=== PATIENT | male | born 2000 | race Caucasian/White ===

== ENCOUNTER 2023-05-11 20:53 | Observation (INO) ==
[2023-05-11 21:51] LABS: Albumin Level 5.1 gm/dl (3.4-5.0); BUN Creatinine Ratio 16.1 (10-20); Bilirubin,Total 0.6 mg/dl (0.2-1.0); Creatinine Clr Calc Pharmacy 111.9 ml/min; Est GFR (Non-African American) 123.4 ml/min; Globulin 2.5 gm/dl (2.5-4.0); Potassium 3.7 mmol/L (3.5-5.1); Total Protein 7.6 gm/dl (6.0-8.3)
[2023-05-11] MEDS ORDERED: ONDANSETRON INJ 2 MG/ML 2 ML VIAL ONE (21:57)
[2023-05-11] MEDS ORDERED: diphenhydrAMINE 50 MG/ML VIAL IV STA (21:59)
[2023-05-11] MEDS ORDERED: ONDANSETRON INJ 2 MG/ML 2 ML VIAL IV STA (21:59)
--- NOTE | 2023-05-11 22:00 | Emergency Department Note ---
Impression & Plan Intractable nausea and vomiting ED Provider Note Name: BETI ANDERSON Age: 22 Sex: Male Arrives Via: Walk-In Informant: Patient, girlfriend ED Provider: Neri Sanchez MD Chief Complaint: Vomiting Impression: As per impressions above Medical Decision Makin-year-old healthy male arrives for evaluation of nausea vomiting. Rapid onset since about 7:00 this evening. Associated with abdominal cramping. On examination he is pale somewhat diaphoretic. He has no significant tenderness palpation of his abdomen. Patient continues to vomit despite multiple rounds of antiemetics. He was given 2 L normal saline followed by a 3rd L due to continued emesis and feeling lightheaded. Due to continued vomiting KUB was obtained which was unremarkable. Laboratory workup remarkable for just a mildly elevated white blood cell count and faintly elevated LFTs without bili elevation. Continued to have nausea and inability to tolerate p.o. At this point proceeded with getting a CT scan of the abdomen pelvis. Due to the intractable nature of this nausea and vomiting I do not think discharge would be reasonable at this time and thus hospitalist consulted for further management. Of note patient had an episode of severe nausea vomiting that resulted in hospital evaluation about a year ago following eating some bad food. He has had no other previous abdominal issues. Patient does admit to infrequent use of marijuana but is adamant he does not use it on a regular basis or daily. Triage/Nursing Notes reviewed by Me Differential:Gastroenteritis, food borne illness, infections, appendicitis, diverticulitis, inflammatory bowel disease, obstruction, GI bleed, biliary pathology, volvulus, as well as other pathologies. Vital Signs: reviewed and remarkable for no significant abnormalities Interventions: Normal Saline bolus 1 L IV x 3, Zofran 4 mg IV x 3, Reglan 5 mg IV, Benadryl 50 mg IV Labs:ED labs Reviewed by me and remarkable for mildly elevated white blood cell count and slightly elevated LFTs Imagin view KUB as per my interpretation nonspecific bowel gas pattern without evidence of obstruction. CT of the abdomen pelvis with IV contrast as per my informal interpretation. No evidence of obstruction, free air, free fluid or other concerning finding. Radiologist confirms Consults:Dr. Nixon of the [facility] consulted for further management. Plan: Disposition:Hospitalization. Condition: Good History of Present Illness: 22-year-old male arrives for evaluation of nausea and vomiting. Patient notes around 7 PM rapid onset of nausea vomiting. Mild associated abdominal cramping but denies any specific pain. Denies any fevers, chills, runny nose, chest pain, shortness of breath, cough, congestion, sore throat, neck pain or any other concerning signs or symptoms. He does not recall any bad food he may have eaten recently. No falls, trauma, injuries. No previous abdominal surgeries. States no sick contacts. Patient does note that this occurred about a year ago after eating some bad food. He did try some Zofran prior to arrival without improvement. Past Medical History:None Home Medications:None Allergies:NKDA Vitals:Blood Pressure: 118/86, Pulse 79, RR 16, T 36.4C, O2 94% on RA Physical Exam: GENERAL: Patient is pale appearing and in mild distress. RESPIRATORY: No dyspnea. Clear to auscultation and equal bilaterally. CARDIOVASCULAR: Regular rate and rhythm.No murmur appreciated. GASTROINTESTINAL: Abdomen soft, non-tender, no peritonitis. EXTREMITIES: Normal motion all extremities, no cyanosis, no edema. NEUROLOGIC: Alert and oriented. No focal neurologic deficits appreciated SKIN: No rash, no jaundice, no diaphoresis. PSYCH: Appropriate GCS: 15 ED Course: Times/Reassessments: Many repeat evaluations of the patient throughout his stay. Patient here for almost 5 hours and continues to have nausea and appear pale. Agreeable to hospitalization. Note I did discuss several times whether we should contact parents though he deferred given how late at night it was Neri Sanchez MD Past Med/Surg History Social History Smoking Status: Current every day smoker Tobacco Type: E-cigarettes / Vaping Second Hand Exposure: No; Do You Dip or Chew Tobacco: No; Tobacco Cessation Education Requested by Patient: No Hx Alcohol Use: No Hx Substance Use: Yes Last Used Substance: Unknown Preferred Language: Lithuanian Communication Ability: Effective Formulator Required: No Beliefs That Will Affect Care: None Current Living Situation: Family Current Living Situation Comment: apartment Other Information That Helps Us Care for You: No Feels Safe at Home: Yes Safety Concerns: Feels Safe At This Time Assistive Devices: None Allergies Allergies Allergy/AdvReac Type Severity Reaction Status Date / Time No Known Allergies Allergy Verified 05/11/23 23:19 Home Meds Home Medications Medication Instructions Recorded Confirmed No Known Home Medications 05/11/23 05/11/23 Results & Data (ED) Vital Signs Vital Signs - 24 hr 05/11/23 21:05 05/11/23 22:01 05/11/23 22:54 Temperature 36.4 C L Temperature Source Temporal Artery Scan Pulse Rate 79 64 Pulse Rate [Apical] 67 Pulse Rhythm [Apical] Regular Pulse Strength [Apical] Normal Respiratory Rate 16 19 Respiratory Effort / Characteristics Non-Labored Spontaneous Respiratory Depth Normal Respiratory Pattern Regular Blood Pressure 118/86 Blood Pressure [Right Arm] Blood Pressure Mean 96 Blood Pressure Mean [Right Arm] Blood Pressure Position [Right Arm] Pulse Oximetry 94 99 Oxygen Delivery Method Room Air Room Air Sepsis Recent Fever Within 48 Hours No Sepsis New/Unexplained Change in Mental Status No Sepsis Action Taken by Nursing No Action Required 05/12/23 00:00 Temperature Temperature Source Pulse Rate Pulse Rate [Apical] 59 L Pulse Rhythm [Apical] Pulse Strength [Apical] Respiratory Rate 13 Respiratory Effort / Characteristics Non-Labored Spontaneous Respiratory Depth Normal Respiratory Pattern Regular Blood Pressure Blood Pressure [Right Arm] 127/59 L Blood Pressure Mean Blood Pressure Mean [Right Arm] 81 Blood Pressure Position [Right Arm] Semi-fowlers Pulse Oximetry 97 Oxygen Delivery Method Room Air Sepsis Recent Fever Within 48 Hours Sepsis New/Unexplained Change in Mental Status Sepsis Action Taken by Nursing Laboratory Data 05/12/23 08:06 05/12/23 08:06 Lab Results 05/11/23 05/11/23 05/11/23 Range/Units 21:22 21:53 22:05 WBC 13.02 H (4.8-10.8) K/ul RBC 5.42 (4.70-6.10) M/uL Hgb 15.7 (14.0-18.0) g/dl Hct 45.1 (42.0-52.0) % MCV 83.2 (80.0-100.0) fL MCH 29.0 (25.0-34.0) pg MCHC 34.8 (32.0-36.0) g/dL RDW Std Deviation 38.0 (36.4-46.3) fL RDW Coeff of Del 12.6 (11.5-14.5) % Plt Count 300 (130-400) K/uL MPV 9.5 (9.4-12.4) fL Immature Gran % (Auto) 0.5 % Neut % (Auto) 84.1 % Lymph % (Auto) 11.9 % Esmeralda % (Auto) 3.1 % Eos % (Auto) 0.1 % Baso % (Auto) 0.3 % Neut # (Auto) 10.95 H (1.40-6.50) K/uL Lymph # (Auto) 1.55 (1.20-3.40) K/uL Esmeralda # (Auto) 0.41 (0.11-0.59) K/uL Eos # (Auto) 0.01 (0.00-0.50) K/uL Baso # (Auto) 0.04 (0.00-0.20) K/uL Immature Gran # (Auto) 0.06 (0.01-0.20) K/uL Sodium 143 (136-145) mmol/L Potassium 3.7 (3.5-5.1) mmol/L Chloride 105 (98-107) mmol/L Carbon Dioxide 26 (21-32) mmol/L Anion Gap 12 H (3-11) BUN 14 (6-23) mg/dl Creatinine 0.87 (0.6-1.4) mg/dl Est Cr Clr Drug Dosing 111.9 ml/min Est GFR ( Amer) 143.0 ml/min Est GFR (Non-Af Amer) 123.4 ml/min BUN/Creatinine Ratio 16.1 (10-20) Glucose 122 H (70-99(Fasting)) mg/dl POC Glucose 119 H (70-99) mg/dl Calcium 10.0 (8.6-10.3) mg/dl Phosphorus 1.8 L (2.5-4.9) mg/dl Magnesium 1.9 (1.7-2.4) mg/dl Total Bilirubin 0.6 (0.2-1.0) mg/dl AST 53 H (13-39) U/L ALT 72 H (7-52) U/L Alkaline Phosphatase 55 (34-104) U/L Total Protein 7.6 (6.0-8.3) gm/dl Albumin 5.1 H (3.4-5.0) gm/dl Globulin 2.5 (2.5-4.0) gm/dl Albumin/Globulin Ratio 2.0 (0.9-2) Lipase 19 (11-82) U/L Urine Color Urine Appearance (Clear) Urine pH (4.5-7.5) Ur Specific [place] (1.000-1.030) Urine Protein (Negative) Urine Glucose (UA) (Negative) Urine Ketones (Negative) Urine Blood (Negative) Urine Nitrite (Negative) Urine Bilirubin (Negative) Urine Urobilinogen (Negative) Ur Leukocyte Esterase (Negative) Urine RBC (0-4) /hpf Urine WBC (0-5) /hpf Ur Epithelial Cells (0-5) /lpf Urine Bacteria (Negative) Urine Mucus (None Prsent) SARS-CoV-2 (PCR) NEGATIVE (Negative) Influenza Type A (PCR) Negative (Neg) Influenza Type B (PCR) Negative (Neg) RSV (RT-PCR) Negative (Neg) 05/11/23 Range/Units Unknown WBC (4.8-10.8) K/ul RBC (4.70-6.10) M/uL Hgb (14.0-18.0) g/dl Hct (42.0-52.0) % MCV (80.0-100.0) fL MCH (25.0-34.0) pg MCHC (32.0-36.0) g/dL RDW Std Deviation (36.4-46.3) fL RDW Coeff of Del (11.5-14.5) % Plt Count (130-400) K/uL MPV (9.4-12.4) fL Immature Gran % (Auto) % Neut % (Auto) % Lymph % (Auto) % Esmeralda % (Auto) % Eos % (Auto) % Baso % (Auto) % Neut # (Auto) (1.40-6.50) K/uL Lymph # (Auto) (1.20-3.40) K/uL Esmeralda # (Auto) (0.11-0.59) K/uL Eos # (Auto) (0.00-0.50) K/uL Baso # (Auto) (0.00-0.20) K/uL Immature Gran # (Auto) (0.01-0.20) K/uL Sodium (136-145) mmol/L Potassium (3.5-5.1) mmol/L Chloride (98-107) mmol/L Carbon Dioxide (21-32) mmol/L Anion Gap (3-11) BUN (6-23) mg/dl Creatinine (0.6-1.4) mg/dl Est Cr Clr Drug Dosing ml/min Est GFR ( Amer) ml/min Est GFR (Non-Af Amer) ml/min BUN/Creatinine Ratio (10-20) Glucose (70-99(Fasting)) mg/dl POC Glucose (70-99) mg/dl Calcium (8.6-10.3) mg/dl Phosphorus (2.5-4.9) mg/dl Magnesium (1.7-2.4) mg/dl Total Bilirubin (0.2-1.0) mg/dl AST (13-39) U/L ALT (7-52) U/L Alkaline Phosphatase (34-104) U/L Total Protein (6.0-8.3) gm/dl Albumin (3.4-5.0) gm/dl Globulin (2.5-4.0) gm/dl Albumin/Globulin Ratio (0.9-2) Lipase (11-82) U/L Urine Color Yellow Urine Appearance Clear (Clear) Urine pH >= 9.0 H (4.5-7.5) Ur Specific [place] 1.020 (1.000-1.030) Urine Protein 1+ H (Negative) Urine Glucose (UA) Negative (Negative) Urine Ketones 3+ H (Negative) Urine Blood Negative (Negative) Urine Nitrite Negative (Negative) Urine Bilirubin Negative (Negative) Urine Urobilinogen Negative (Negative) Ur Leukocyte Esterase Negative (Negative) Urine RBC 0-4 (0-4) /hpf Urine WBC 0-5 (0-5) /hpf Ur Epithelial Cells 5-10 H (0-5) /lpf Urine Bacteria Negative (Negative) Urine Mucus Present A (None Prsent) SARS-CoV-2 (PCR) (Negative) Influenza Type A (PCR) (Neg) Influenza Type B (PCR) (Neg) RSV (RT-PCR) (Neg) Administered Medications Lactated Ringer's (Lr) 1,000 mls @ 80 mls/hr IV .[id number] TOMMY Stop: 05/12/23 17:15 Last Admin: 05/12/23 05:08 Dose: 80 mls/hr Documented By: RPW Discontinued Medications Diphenhydramine HCl (Diphenhydramine 50 Mg/Ml Vial) 50 mg IV NOW STA Stop: 05/11/23 22:00 Last Admin: 05/11/23 22:06 Dose: 50 mg Documented By: KAMALA Sodium Chloride (Nss) 1,000 mls @ 999 mls/hr IV .Q1H1M TOMMY Stop: 05/12/23 00:00 Last Infusion: 05/11/23 23:33 Dose: Infused Documented By: Admin: 05/11/23 22:01 Dose: 999 mls/hr Documented By: Infusion: 05/11/23 22:01 Dose: Infused Documented By: Admin: 05/11/23 22:01 Dose: 999 mls/hr Documented By: KAMALA Sodium Chloride (Nss) 1,000 mls @ 999 mls/hr IV .Q1H1M ONE Stop: 05/12/23 01:29 Last Infusion: 05/12/23 01:38 Dose: Infused Documented By: Admin: 05/12/23 00:37 Dose: 999 mls/hr Documented By: ROSARIO Ioversol (Optiray 320 500ml) 100 ml IV ONCE ONE Stop: 05/12/23 02:08 Last Admin: 05/12/23 02:08 Dose: 85 ml Documented By: OLEG Metoclopramide HCl (Metoclopramide Hcl Inj 5 Mg/Ml 2 Ml Vial) 5 mg IV ONE ONE Stop: 05/12/23 01:38 Last Admin: 05/12/23 01:42 Dose: 5 mg Documented By: ROSARIO Ondansetron HCl (Ondansetron Inj 2 Mg/Ml 2 Ml Vial) Confirm Administered Dose 4 mg .ROUTE .STK-MED ONE Stop: 05/11/23 21:58 Last Admin: 05/11/23 22:01 Dose: Not Given Documented By: KAMALA Ondansetron HCl (Ondansetron Inj 2 Mg/Ml 2 Ml Vial) 4 mg IV NOW STA Stop: 05/11/23 22:00 Last Admin: 05/11/23 22:02 Dose: 4 mg Documented By: KAMALA Ondansetron HCl (Ondansetron Inj 2 Mg/Ml 2 Ml Vial) 4 mg IV NOW STA Stop: 05/12/23 00:30 Last Admin: 05/12/23 00:38 Dose: 4 mg Documented By: Individual Digital Imaging Data Radiologist's Impression: KUB X-Ray 05/12/23 00:29 KUB HISTORY: vomiting COMPARISON: None. FINDINGS: The bowel gas pattern is unremarkable. There are no dilated loops of small bowel to suggest an obstruction. No renal calculi. No ureteral calculi. No pneumoperitoneum or pneumatosis. IMPRESSION: Nonobstructive bowel gas pattern. ACT 112: Negative or not required by law. Electronically signed by: Audi Holland M.D. 05/12/2023 7:08 AM Abdomen/Pelvis CT 05/12/23 01:37 Exam(s): CT ABDOMEN + PELVIS With Contrast IV Amt: 85 ML OPTIRAY 320 EXAM: CT Abdomen and Pelvis With Intravenous Contrast CLINICAL HISTORY: Reason for exam: intractable vomiting. TECHNIQUE: Axial computed tomography images of the abdomen and pelvis with intravenous contrast. CTDI is 9.21 mGy and DLP is 421.79 mGy-cm. Automated exposure control was utilized for the study. A dose lowering technique was utilized adhering to the principles of ALARA. CONTRAST: Patient received 85 ML OPTIRAY 320 of IV contrast COMPARISON: None. FINDINGS: Lung bases: Unremarkable. No mass. No consolidation. ABDOMEN: Liver: Unremarkable. No mass. Gallbladder and bile ducts: Unremarkable. No calcified stones. No ductal dilation. Pancreas: Unremarkable. No mass. No ductal dilation. Spleen: Unremarkable. No splenomegaly. Adrenals: Unremarkable. No mass. Kidneys and ureters: Unremarkable. No solid mass. No hydronephrosis. Stomach and bowel: Decompression of the colon with mild diffuse thickening of the wall which may indicate mild colitis. No obstruction. PELVIS: Appendix: Distinct appendix not visualized with no inflammation by the cecum to suggest appendicitis. Bladder: Thickening of the urinary bladder wall which may indicate cystitis. Reproductive: Unremarkable as visualized. ABDOMEN and PELVIS: Intraperitoneal space: Unremarkable. No free air. No significant fluid collection. Bones/joints: No acute fracture. No dislocation. Soft tissues: Unremarkable. Vasculature: Unremarkable. No abdominal aortic aneurysm. Lymph nodes: Unremarkable. No enlarged lymph nodes. IMPRESSION: 1. Possible mild diffuse colitis. No signs of acute appendicitis or bowel obstruction. 2. Cannot exclude cholecystitis, correlation with urinalysis recommended if clinically indicated. 3. Normal abdominal viscera. Electronically signed by: Kristal Leach MD 05/12/23 02:48 AM Discharge Plan Visit Data Chief Complaint: Vomiting Stated Complaint: VOMITING, CHILLS/SWEATS ED Provider: Neri Sanchez Discharge Problem: Intractable nausea and vomiting Patient Disposition: Admitted As Inpatient Discharge Instructions Interventions: ED Discharge Assessment Last Done: 05/12/23 04:32
[2023-05-11] MEDS: SODIUM CHLORIDE 0.9% 1,000 ML IV SCH (22:01)
[2023-05-11 22:08] LABS: Basophils # (auto) 0.04 K/uL (0.00-0.20); Basophils % (auto) 0.3 %; Eosinophils # (auto) 0.01 K/uL (0.00-0.50); Eosinophils % (auto) 0.1 %; Hematocrit (blood only) 45.1 % (42.0-52.0); Hemoglobin 15.7 g/dl (14.0-18.0); Immature Granulocytes # (auto) 0.06 K/uL (0.01-0.20); Immature Granulocytes % (auto) 0.5 %; Lymphocytes # (auto) 1.55 K/uL (1.20-3.40); Lymphocytes % (auto) 11.9 %; Mean Corpuscular Hgb Conc 34.8 g/dL (32.0-36.0); Mean Corpuscular Volume 83.2 fL (80.0-100.0); Mean Platelet Volume 9.5 fL (9.4-12.4); Monocytes # (auto) 0.41 K/uL (0.11-0.59); Monocytes % (auto) 3.1 %; Neutrophils # (auto) 10.95 K/uL (1.40-6.50); Neutrophils % (auto) 84.1 %; Platelet Count 300 K/uL (130-400); RDW Coefficient of Variation 12.6 % (11.5-14.5); Red Blood Count 5.42 M/uL (4.70-6.10); White Blood Count 13.02 K/ul (4.8-10.8)
[2023-05-11 23:00] LABS: Influenza A virus by PCR Negative (Neg); Influenza B virus by PCR Negative (Neg); RSV by PCR Negative (Neg); SARS CoV2 RNA(COVID-19) Ceph NEGATIVE (Negative)
[2023-05-11 23:39] LABS: Appearance Urine Clear (Clear); Bilirubin Urine Negative (Negative); Blood Urine Negative (Negative); Color Urine Yellow; Glucose Urine UA Negative (Negative); Ketones Urine 3+ (Negative); Leukocyte Esterase Urine Negative (Negative); Nitrite Urine Negative (Negative); Protein Urine 1+ (Negative); Urobilinogen Urine Negative (Negative); pH Urine >= 9.0 (4.5-7.5)
[2023-05-11 23:52] LABS: Bacteria Urine Negative (Negative); RBC Urine 0-4 /hpf (0-4); WBC Urine 0-5 /hpf (0-5)
[2023-05-11 23:53] LABS: Mucus Urine Present (None Prsent)
[2023-05-12] MEDS ORDERED: SODIUM CHLORIDE 0.9% 1,000 ML IV ONE (00:29)
[2023-05-12] MEDS ORDERED: ONDANSETRON INJ 2 MG/ML 2 ML VIAL IV STA (00:29)
[2023-05-12] MEDS ORDERED: METOCLOPRAMIDE HCL INJ 5 MG/ML 2 ML VIAL IV ONE (01:37)
[2023-05-12] MEDS ORDERED: OPTIRAY 320 500ml IV ONE (02:07)
[2023-05-12 02:17] LABS: Amphetamines+Metham, Urine Neg (Neg); Barbiturates, Urine Neg (Neg); Benzodiazepine, Urine Neg (Neg); Cocaine, Urine Neg (Neg); MDMA (Ecstacy), Urine Neg (Neg); Marijuana, Urine Pos (Neg); Methadone, Urine Neg (Neg); Opiate, Urine Neg (Neg); Phencyclidine, Urine Neg (Neg)
--- NOTE | 2023-05-12 02:49 | CT Scan Report ---
Exam(s): CT ABDOMEN + PELVIS With Contrast IV Amt: 85 ML OPTIRAY 320 EXAM: CT Abdomen and Pelvis With Intravenous Contrast CLINICAL HISTORY: Reason for exam: intractable vomiting. TECHNIQUE: Axial computed tomography images of the abdomen and pelvis with intravenous contrast. CTDI is 9.21 mGy and DLP is 421.79 mGy-cm. Automated exposure control was utilized for the study. A dose lowering technique was utilized adhering to the principles of ALARA. CONTRAST: Patient received 85 ML OPTIRAY 320 of IV contrast COMPARISON: None. FINDINGS: Lung bases: Unremarkable. No mass. No consolidation. ABDOMEN: Liver: Unremarkable. No mass. Gallbladder and bile ducts: Unremarkable. No calcified stones. No ductal dilation. Pancreas: Unremarkable. No mass. No ductal dilation. Spleen: Unremarkable. No splenomegaly. Adrenals: Unremarkable. No mass. Kidneys and ureters: Unremarkable. No solid mass. No hydronephrosis. Stomach and bowel: Decompression of the colon with mild diffuse thickening of the wall which may indicate mild colitis. No obstruction. PELVIS: Appendix: Distinct appendix not visualized with no inflammation by the cecum to suggest appendicitis. Bladder: Thickening of the urinary bladder wall which may indicate cystitis. Reproductive: Unremarkable as visualized. ABDOMEN and PELVIS: Intraperitoneal space: Unremarkable. No free air. No significant fluid collection. Bones/joints: No acute fracture. No dislocation. Soft tissues: Unremarkable. Vasculature: Unremarkable. No abdominal aortic aneurysm. Lymph nodes: Unremarkable. No enlarged lymph nodes. IMPRESSION: 1. Possible mild diffuse colitis. No signs of acute appendicitis or bowel obstruction. 2. Cannot exclude cholecystitis, correlation with urinalysis recommended if clinically indicated. 3. Normal abdominal viscera. Electronically signed by: Kristal Leach MD 05/12/23 02:48 AM
--- NOTE | 2023-05-12 03:36 | History & Physical Report ---
Date of Service May 12, 2023 Assessment & Plan (1) Intractable nausea and vomiting: Plan: 22yo male presents with intractable nausea and vomiting. Slightly improved after IVF and anti-emetics. -Admit to medical -Continue IVF - LR at 80mL/hr x 1L -Zofran PRN -Tylenol PRN -Check Mg and PO4 - replete as needed -Clear liquid diet - advance as tolerated History of Present Illness Chief Complaint: nausea and vomiting Primary Care Provider: NO PCP Chon Garduno is a 22yo male with no significant past medical or surgical history presenting with ongoing nausea. Patient was at work today when he developed a sudden hot flush followed by nausea and vomiting. He felt ok for a little while then had another episode of vomiting. Then he had persistent vomiting - multiple episodes of liquid. Non-bloody/non-bilious. He has chills. Denies fever, chest pain, cough, SOB. No abdominal pain or diarrhea. He does not think that he ate any contaminated or poorly handled food. No sick contacts or recent travel. No new medications. In the ER he is afebrile, HD stable. ER Course: NSS x 3L Zofran 4mg Benadryl 50mg IV Zofran 4mg Reglan 5mg Allergies Allergy/AdvReac Type Severity Reaction Status Date / Time No Known Allergies Allergy Verified 05/11/23 23:19 Home Medications Medication Instructions Recorded Confirmed Type No Known Home Medications 05/11/23 05/11/23 History Past Med/Surg History Social History Smoking Status: Current some day smoker Tobacco Type: E-cigarettes / Vaping Preferred Language: Marshallese Feels Safe at Home: Yes Review of Systems Review of Systems: All systems reviewed & are unremarkable except as noted in HPI & below Physical Exam Physical Exam: General: patient resting comfortably, NAD, non-toxic in appearance, AA&O x 4 Skin: warm, dry, intact, no rashes or lesions HEENT: NC/AT, PERRL, EOMI, anicteric sclera, conjunctiva without injection, external ear normal to inspection and nontender, nares patent, moist mucus membranes, dentition intact, no oropharyngeal lesions, neck supple, trachea midline, no LAD, no thyromegaly, no JVD Heart: +S1/S2, regular, no m/r/g Lungs: equal air entry bilaterally, no rales/rhonchi/wheezes Abd: +BS, soft, NT/ND, no masses/organomegaly/ascites Ext: warm, 2+ pulses in UE/LE bilaterally, no clubbing/cyanosis or edema Neuro: nonfocal, patient AA&O x 4, speech intact, no facial droop, moving all extremities on command with equal strength 5/5 Results & Data Results & Data Vital Signs (Past 12 Hours) Vital Signs Temp Pulse Pulse Resp BP BP Pulse Ox 05/12/23 00:00 59 L 13 127/59 L 97 05/11/23 22:54 67 19 99 05/11/23 22:01 64 05/11/23 21:05 36.4 C L 79 16 118/86 94 O2 Del Method 05/12/23 00:00 Room Air 05/11/23 22:54 Room Air 05/11/23 22:01 05/11/23 21:05 Room Air Laboratory Results Laboratory Results WBC 13.02 K/ul (4.8-10.8) H 05/11/23 21:22 RBC 5.42 M/uL (4.70-6.10) 05/11/23 21:22 Hgb 15.7 g/dl (14.0-18.0) 05/11/23 21:22 Hct 45.1 % (42.0-52.0) 05/11/23 21:22 MCV 83.2 fL (80.0-100.0) 05/11/23 21:22 MCH 29.0 pg (25.0-34.0) 05/11/23 21: MCHC 34.8 g/dL (32.0-36.0) 05/11/23 21:22 RDW Std Deviation 38.0 fL (36.4-46.3) 05/11/23 21: RDW Coeff of Del 12.6 % (11.5-14.5) 05/11/23 21:22 Plt Count 300 K/uL (130-400) 05/11/23 21:22 MPV 9.5 fL (9.4-12.4) 05/11/23 21:22 Immature Gran % (Auto) 0.5 % 05/11/23:22 Neut % (Auto) 84.1 % 05/11/23 21:22 Lymph % (Auto) 11.9 % 05/11/23 21:22 Wheeler % (Auto) 3.1 % 05/11/23 21:22 Eos % (Auto) 0.1 % 05/11/23 21:22 Baso % (Auto) 0.3 % 05/11/23 21:22 Neut # (Auto) 10.95 K/uL (1.40-6.50) H 05/11/23 21:22 Lymph # (Auto) 1.55 K/uL (1.20-3.40) 05/11/23 21:22 Wheeler # (Auto) 0.41 K/uL (0.11-0.59) 05/11/23 21:22 Eos # (Auto) 0.01 K/uL (0.00-0.50) 05/11/23 21:22 Baso # (Auto) 0.04 K/uL (0.00-0.20) 05/11/23 21:22 Immature Gran # (Auto) 0.06 K/uL (0.01-0.20) 05/11/23 21:22 Sodium 143 mmol/L (136-145) 05/11/23 21:22 Potassium 3.7 mmol/L (3.5-5.1) 05/11/23 21:22 Chloride 105 mmol/L (98-107) 05/11/23 21:22 Carbon Dioxide 26 mmol/L (21-32) 05/11/23 21:22 Anion Gap 12 (3-11) H 05/11/23 21:22 BUN 14 mg/dl (6-23) 05/11/23 21:22 Creatinine 0.87 mg/dl (0.6-1.4) 05/11/23 21:22 Est Cr Clr Drug Dosing 111.9 ml/min 05/11/23 21:22 Est GFR ( Amer) 143.0 ml/min 05/11/23 21:22 Est GFR (Non-Af Amer) 123.4 ml/min 05/11/23 21:22 BUN/Creatinine Ratio 16.1 (10-20) 05/11/23 21:22 Glucose 122 mg/dl (70-99(Fasting)) H 05/11/23 21:22 POC Glucose 119 mg/dl (70-99) H 05/11/23 21:53 Calcium 10.0 mg/dl (8.6-10.3) 05/11/23 21:22 Total Bilirubin 0.6 mg/dl (0.2-1.0) 05/11/23 21:22 AST 53 U/L (13-39) H 05/11/23 21:22 ALT 72 U/L (7-52) H 05/11/23 21:22 Alkaline Phosphatase 55 U/L (34-104) 05/11/23 21:22 Total Protein 7.6 gm/dl (6.0-8.3) 05/11/23 21:22 Albumin 5.1 gm/dl (3.4-5.0) H 05/11/23 21:22 Globulin 2.5 gm/dl (2.5-4.0) 05/11/23 21:22 Albumin/Globulin Ratio 2.0 (0.9-2) 05/11/23 21:22 Lipase 19 U/L (11-82) 05/11/23 21:22 Urine Color Yellow 05/11/23 Unknown Urine Appearance Clear (Clear) 05/11/23 Unknown Urine pH >= 9.0 (4.5-7.5) H 05/11/23 Unknown Ur Specific [place] 1.020 (1.000-1.030) 05/11/23 Unknown Urine Protein 1+ (Negative) H 05/11/23 Unknown Urine Glucose (UA) Negative (Negative) 05/11/23 Unknown Urine Ketones 3+ (Negative) H 05/11/23 Unknown Urine Blood Negative (Negative) 05/11/23 Unknown Urine Nitrite Negative (Negative) 05/11/23 Unknown Urine Bilirubin Negative (Negative) 05/11/23 Unknown Urine Urobilinogen Negative (Negative) 05/11/23 Unknown Ur Leukocyte Esterase Negative (Negative) 05/11/23 Unknown Urine RBC 0-4 /hpf (0-4) 05/11/23 Unknown Urine WBC 0-5 /hpf (0-5) 05/11/23 Unknown Ur Epithelial Cells 5-10 /lpf (0-5) H 05/11/23 Unknown Urine Bacteria Negative (Negative) 05/11/23 Unknown Urine Mucus Present (None Prsent) A 05/11/23 Unknown Urine Opiates Screen Neg (Neg) 05/12/23 Unknown Ur Methadone, Qual Neg (Neg) 05/12/23 Unknown Urine Barbiturates Neg (Neg) 05/12/23 Unknown Ur Phencyclidine (PCP) Neg (Neg) 05/12/23 Unknown U Amphetamin/Meth Scrn Neg (Neg) 05/12/23 Unknown MDMA (Ecstasy) Screen Neg (Neg) 05/12/23 Unknown U Benzodiazepines Scrn Neg (Neg) 05/12/23 Unknown Ur Cocaine Metabolite Neg (Neg) 05/12/23 Unknown U Marijuana (THC) Screen Pos (Neg) H 05/12/23 Unknown SARS-CoV-2 (PCR) NEGATIVE (Negative) 05/11/23 22:05 Influenza Type A (PCR) Negative (Neg) 05/11/23 22:05 Influenza Type B (PCR) Negative (Neg) 05/11/23 22:05 RSV (RT-PCR) Negative (Neg) 05/11/23 22:05 Impressions Abdomen/Pelvis CT 05/12/23 01:37 Exam(s): CT ABDOMEN + PELVIS With Contrast IV Amt: 85 ML OPTIRAY 320 EXAM: CT Abdomen and Pelvis With Intravenous Contrast CLINICAL HISTORY: Reason for exam: intractable vomiting. TECHNIQUE: Axial computed tomography images of the abdomen and pelvis with intravenous contrast. CTDI is 9.21 mGy and DLP is 421.79 mGy-cm. Automated exposure control was utilized for the study. A dose lowering technique was utilized adhering to the principles of ALARA. CONTRAST: Patient received 85 ML OPTIRAY 320 of IV contrast COMPARISON: None. FINDINGS: Lung bases: Unremarkable. No mass. No consolidation. ABDOMEN: Liver: Unremarkable. No mass. Gallbladder and bile ducts: Unremarkable. No calcified stones. No ductal dilation. Pancreas: Unremarkable. No mass. No ductal dilation. Spleen: Unremarkable. No splenomegaly. Adrenals: Unremarkable. No mass. Kidneys and ureters: Unremarkable. No solid mass. No hydronephrosis. Stomach and bowel: Decompression of the colon with mild diffuse thickening of the wall which may indicate mild colitis. No obstruction. PELVIS: Appendix: Distinct appendix not visualized with no inflammation by the cecum to suggest appendicitis. Bladder: Thickening of the urinary bladder wall which may indicate cystitis. Reproductive: Unremarkable as visualized. ABDOMEN and PELVIS: Intraperitoneal space: Unremarkable. No free air. No significant fluid collection. Bones/joints: No acute fracture. No dislocation. Soft tissues: Unremarkable. Vasculature: Unremarkable. No abdominal aortic aneurysm. Lymph nodes: Unremarkable. No enlarged lymph nodes. IMPRESSION: 1. Possible mild diffuse colitis. No signs of acute appendicitis or bowel obstruction. 2. Cannot exclude cholecystitis, correlation with urinalysis recommended if clinically indicated. 3. Normal abdominal viscera. Electronically signed by: Kristal Leach MD 05/12/23 02:48 AM PG Care Time/CCT Total # of Minutes Spent Total Time Spent with Patient: Total time spent is greater than 50% in coordination of care (as documented) at patient's floor/unit and/or counseling patient: Coding Level of Care Code 59380 INT INP/OBS CARE 2/55MIN Diagnoses Intractable nausea and vomiting R11.2
[2023-05-12] MEDS ORDERED: ACETAMINOPHEN 325 MG TAB PO PRN (04:46)
[2023-05-12] MEDS ORDERED: ONDANSETRON INJ 2 MG/ML 2 ML VIAL IV PRN ×2 (04:46)
[2023-05-12] MEDS ORDERED: LACTATED RINGER'S 1,000 ML IV SCH (04:46)
[2023-05-12 05:36] LABS: Magnesium 1.9 mg/dl (1.7-2.4); Phosphorus 1.8 mg/dl (2.5-4.9)
--- NOTE | 2023-05-12 07:09 | XRay Report ---
KUB HISTORY: vomiting COMPARISON: None. FINDINGS: The bowel gas pattern is unremarkable. There are no dilated loops of small bowel to suggest an obstruction. No renal calculi. No ureteral calculi. No pneumoperitoneum or pneumatosis. IMPRESSION: Nonobstructive bowel gas pattern. ACT 112: Negative or not required by law. Electronically signed by: Audi Holland M.D. 05/12/2023 7:08 AM
--- NOTE | 2023-05-12 08:02 | Hospitalist Progress Note ---
Date of Service May 12, 2023 Assessment & Plan Plan 1) Intractable nausea and vomitin yo M presents with intractable nausea and vomiting. Slightly improved after IVF and anti-emetics. - Admit to medical, elevated WBC, 13; transaminitis: AST, 53/ ALT, 72 - Electrolytes: P, 1.8/ Mg, 1.9/ K, 3.7/ AG, 12 - UA: Ur ketones, 3+/ Ur pH, > 9.0 - Continue IVF - LR at 80mL/hr x 1L - Zofran PRN, Tylenol PRN - Check Mg and PO4 - replete as needed - Clear liquid diet - advance as tolerated Admission and Anticipated Discharge Date Admission Date: May 12, 2023 Lyubov Garduno is a 22 yo M w/ unremarkable PMHx and PSgHx presenting with ongoing nausea. Patient was at work today when he developed a sudden hot flush followed by nausea and vomiting. He felt ok for a little while then had another episode of vomiting. Then he had persistent vomiting: multiple episodes of liquid, non-bloody/non-bilious. He has chills. Denies fever, chest pain, cough, SOB. No abdominal pain or diarrhea. He does not think that he ate any contaminated or poorly handled food. No sick contacts or recent travel. No new medications. Results & Data Results & Data Vital Signs (Past 12 Hours) Vital Signs Temp Pulse Pulse Pulse Resp BP BP 05/12/23 07:15 36.9 C 75 16 111/54 L 05/12/23 04:48 36.9 C 75 16 124/65 05/12/23 04:32 82 16 113/58 L 05/12/23 03:38 83 17 121/73 05/12/23 00:00 59 L 13 127/59 L 05/11/23 22:54 67 19 05/11/23 22:01 64 05/11/23 21:05 36.4 C L 79 16 118/86 Pulse Ox O2 Del Method 05/12/23 07:15 98 Room Air 05/12/23 04:48 98 Room Air 05/12/23 04:32 98 Room Air 05/12/23 03:38 98 Room Air 05/12/23 00:00 97 Room Air 05/11/23 22:54 99 Room Air 05/11/23 22:01 05/11/23 21:05 94 Room Air Resident Activity Tracking Resident Involvement: Resident Care Provided Care Provided: Adult Hospital Medicine
[2023-05-12 08:19] LABS: Hematocrit (blood only) 41.2 % (42.0-52.0); Hemoglobin 13.8 g/dl (14.0-18.0); Mean Corpuscular Hemoglobin 28.2 pg (25.0-34.0); Mean Corpuscular Hgb Conc 33.5 g/dL (32.0-36.0); Mean Corpuscular Volume 84.3 fL (80.0-100.0); Mean Platelet Volume 9.2 fL (9.4-12.4); Platelet Count 236 K/uL (130-400); RDW Coefficient of Variation 12.7 % (11.5-14.5); RDW Standard Deviation 38.8 fL (36.4-46.3); Red Blood Count 4.89 M/uL (4.70-6.10); White Blood Count 7.86 K/ul (4.8-10.8)
[2023-05-12 08:35] LABS: Anion Gap 5 (3-11); BUN Creatinine Ratio 10.8 (10-20); Blood Urea Nitrogen 8 mg/dl (6-23); Calcium 8.8 mg/dl (8.6-10.3); Carbon Dioxide 26 mmol/L (21-32); Chloride 109 mmol/L (98-107); Creatinine Clr Calc Pharmacy 132.7 ml/min; Est GFR (African American) > 150.0 ml/min; Est GFR (Non-African American) 131.9 ml/min; Glucose 113 mg/dl (70-99(Fasting)); Potassium 3.8 mmol/L (3.5-5.1); Sodium 140 mmol/L (136-145)
--- NOTE | 2023-05-12 14:00 | Discharge Summary ---
Date of Service May 12, 2023 Admission HPI Per Admitting Provider Chon Garduno is a 22yo male with no significant past medical or surgical history presenting with ongoing nausea. Patient was at work today when he developed a sudden hot flush followed by nausea and vomiting. He felt ok for a little while then had another episode of vomiting. Then he had persistent vomiting - multiple episodes of liquid. Non-bloody/non-bilious. He has chills. Denies fever, chest pain, cough, SOB. No abdominal pain or diarrhea. He does not think that he ate any contaminated or poorly handled food. No sick contacts or recent travel. No new medications. In the ER he is afebrile, HD stable. ER Course: NSS x 3L Zofran 4mg Benadryl 50mg IV Zofran 4mg Reglan 5mg Admission Exam Per Admitting Provider Physical Exam: General: patient resting comfortably, NAD, non-toxic in appearance, AA&O x 4 Skin: warm, dry, intact, no rashes or lesions HEENT: NC/AT, PERRL, EOMI, anicteric sclera, conjunctiva without injection, external ear normal to inspection and nontender, nares patent, moist mucus membranes, dentition intact, no oropharyngeal lesions, neck supple, trachea midline, no LAD, no thyromegaly, no JVD Heart: +S1/S2, regular, no m/r/g Lungs: equal air entry bilaterally, no rales/rhonchi/wheezes Abd: +BS, soft, NT/ND, no masses/organomegaly/ascites Ext: warm, 2+ pulses in UE/LE bilaterally, no clubbing/cyanosis or edema Neuro: nonfocal, patient AA&O x 4, speech intact, no facial droop, moving all extremities on command with equal strength 5/5 Principal Diagnosis Intractable vomiting Cannabinoid Hyperemesis Syndrome Discharge Exam Constitutional WD/WN, vitals as above Respiratory normal respiratory effort, lungs clear to auscultation Cardiovascular RRR, no murmur, no edema Gastrointestinal (Abdomen) normal bowel sounds, soft, nontender, no hepatosplenomegaly diffuse discomfort only present when vomiting Musculoskeletal no cyanosis or clubbing, extremities motor strength 5/5 Neurologic moves all extremities and awake; no focal motor deficits and not confused Psychiatric A+Ox3, euthymic affect Discharge Data Allergies Allergy/AdvReac Type Severity Reaction Status Date / Time No Known Allergies Allergy Verified 05/11/23 23:19 Consultations 05/12/23 03:08 ED Decision to Admit Stat Ordered Studies 05/12/23 01:37 CT abd pelvis IV con only Stat Hospital Course (1) Intractable nausea and vomiting: (2) Cannabinoid hyperemesis syndrome: Plan 22 yo M presented with intractable nausea and vomiting. Slightly improved after IVF and anti-emetics. Intractable nausea and vomiting/cannabinoid hyperemesis syndrome - Received IVF and antiemetics. Symptoms improved by next morning. - pt discharged and encouraged to F/U w/ PCP to get a repeat CMP and phosphate level - pt's Hx suggests that elevated transaminases and low phosphate could be due to alcohol use, recent decreased oral intake even prior to N/V episodes - pt counseled to help prevent any potential future episodes of CHS w/ hot showers, capsaicin cream when feeling nauseous after marijuana intake Total Time Total Time Spent Total Time Spent (In Minutes): see attending attestation Discharge Plan Discharge Items Patient Disposition: Home - Self-Care Reason For Visit: NAUSEA Discharge Diagnosis: Cannabinoid Hyperemesis Syndrome Activity: Resume your previous activity Non-emergency contact: Primary Care Provider Call non-emergency contact if: your symptoms worsen and your pain is worsening Follow-up/Referrals: PCP,NO [Primary Care Provider] - (PLEASE FOLLOW UP WITH [facility] IN 7-10 DAYS.) Diet: Regular Addtl Attending Provider Instructions: You were admitted to the hospital for persistent nausea and vomiting. You were treated with nausea medication and your symptoms resolved. Your symptoms may have been brought on by regular marijuana usage. We recommend you stop, or at least decrease your marijuana usage, to prevent relapse of symptoms. If needed, you may try topical capsaicin cream applied to the abdomen to help improve nausea symptoms. A discharge summary will be sent to your primary care physician to ensure continuity of care. Please bring this discharge summary with you to your next office appointment so that your provider can review it at that time. Follow-up appointments: Make a follow-up appointment with your PCP within the next week. It is very important that you follow up with them shortly after discharge from the hospital. Keep all your follow-up appointments as already scheduled. If you cannot make an appointment, notify your provider. Medications: Your medication list has been reviewed and reconciled upon discharge to ensure accuracy and continuity of care. An updated list of all your medications is included with your hospital discharge paperwork. Please review this list closely, and make note of any changes. Take your medications as instructed; do not skip a dose of your medicines. Make sure all of your doctors know every medicine you are taking (including [id number] medicines, vitamins, and supplements). Call your primary care provider before taking any new medicines (including [id number] medicines, vitamins, and supplements), because some of these may interact with your current medications, or may make your symptoms worse. Tell your primary care provider if you cannot afford your medications. CONTACT YOUR PRIMARY CARE PROVIDER if you experience any of the following: Persistent nausea and vomiting Increased fatigue, depression, or anxiety Difficulty following your treatment plan, or difficulty taking medications CALL 911 OR GO TO THE EMERGENCY DEPARTMENT if you experience any of the following: Sudden, severe abdominal pain or nausea/vomiting Severe chest pain, or chest pain that radiates (moves) to your jaw or arm Sudden, severe shortness of breath or difficulty breathing Thank you for allowing us to participate in your care. Pending Studies at Discharge: No Stand-Alone Forms: [facility], Smoking Cessation Medications and DC Order Prescriptions: No Action No Known Home Medications Discharge Orders: Discharge Order (Routine); Ordered 05/12/23 Ordered By: Jo-Ann Prescott Admission Data Admit Date/Time: 05/12/23 03:35 Attending Provider: Cynthia Shook Admit Provider: Erika Nixon Primary Care Provider: PCP,NO Other Providers: Erika Nixon Other Interventions: Discharge Summary Assessment (RN) Last Done: 05/12/23 14:08 Supervising Physician Co-Signing Physician Notes Attending Physician Supervision Note: I independently interviewed and examined the patient and verified the sosa history and physical, reviewed labs and image studies and agree with findings and care plan noted above. Intractable N/V - ? sec to cannabis use. symptoms improved. Cannabis use - --discussed role of underlying anxiety and self medication with cannabis. Advised to get in with [facility] for counselling services and possible med management
[2023-05-14 17:32] LABS: Marijuana Quant, GCMS Urine 1739 ng/mL (<5)
== END 2023-05-12 14:58 | disposition home or self-care (01) ==
LOC: 3N 20:53 → ED 20:53 → SUATTDRO 05-12 03:35 → 3N 05-12 04:32